=== PATIENT | male | born 1965 | race Hispanic/Latino ===

== ENCOUNTER → 2023-10-14 | Emergency (ER) | payer BC ==
--- NOTE | 2023-10-14 12:21 | RAD REPORT ---
EXAM DESCRIPTION: RAD - Ankle Right 3 View - 10/14/2023 11:11 am CLINICAL HISTORY: ankle injury COMPARISON: No comparisons TECHNIQUE: Right ankle, 3 views. FINDINGS: No fracture, dislocation or periosteal reaction. No joint effusion seen. No joint space na rrowing. No soft tissue abnormality. Vascular calcifications. IMPRESSION: No acute osseous abnormality.
--- NOTE | 2023-10-14 12:23 | EDPHYS ---
Physician Documentation [facility] Name: Edgar Subramanian Age: 58 yrs Sex: Male : 1965 Arrival Date: 10/14/2023 Time: 10:14 Bed 18 Private MD: ED Physician Shahzad Walker HPI: 10/14 10:31 This 58 yrs old Male presents to ER via Unassigned with complaints of Foot ec2 Injury, Fall Injury. 10:31 Patient arrives today for evaluation of right ankle pain. States that 3 days ago he had ec2 fallen. States that he may have twisted his ankle. Patient reports he fell onto his behind, denies any LOC, denies head strike or neck pain. Has been ambulatory with discomfort.. Historical: - Allergies: 10:33 No Known Allergies; hb - Immunization history:: Client reports having NOT received the Covid vaccine. Flu vaccine is not up to date. - Social history:: Smoking status: Patient denies any tobacco usage or history of. ROS: 10:31 Constitutional: as per hpi ec2 Exam: 10:31 Constitutional: GEN: NAD Head: atraumatic Eyes: EOMI Ears: External ears are ec2 normal. CV: regular rate LUNGS: no respiratory distress ABD: non-distended SKIN: no evidence of rashes MSK: Trace swelling to the right ankle, TTP generalized, intact distal neurovascular status. NEURO: moves all extremities equally Vital Signs: 10:32 BP 166 / 89; Pulse 98; Resp 16; Temp 98.9(O); Pulse Ox 98% on R/A; Weight 81.65 kg; hb Height 5 ft. 5 in. ; Pain 6/10; 12:30 BP 135 / 81; Pulse 86; Resp 18; Pulse Ox 96% on R/A; Pain 5/10; tl4 10:32 Body Mass Index 29.95 (81.65 kg, 165.1 cm) hb 10:32 Pain Scale: Adult hb 12:30 Pain Scale: Adult tl4 MDM: 10:25 Patient medically screened. ec2 10:31 Data reviewed: vital signs. ED course: Patient arrives today for evaluation of right ec2 ankle pain in the setting of a recent fall. Examination remarkable for MSK findings as noted above. Will obtain radiograph of the right ankle. Considering ankle sprain, ankle fracture. . 12:22 ED course: Ankle x-ray independently reviewed and interpreted by me, shows no bony ec2 fracture. Will discharge home in Grayson wrap and have him follow-up with primary care doctor. Return precautions given.. 10/14 10:31 Order name: Ankle Right 3 View XRAY ec2 10/14 12:23 Order name: Grayson Wrap; Complete Time: 12:40 ec2 Administered Medications: No medications were administered Disposition Summary: 10/14/23 12:23 Discharge Ordered Notes: Location: Home ec2 Condition: Stable ec2 Diagnosis - Sprain of ankle ec2 Followup: ec2 - With: Private Physician - When: - Reason: Recheck today's complaints Discharge Instructions: - Discharge Summary Sheet ec2 - Ankle Sprain, [id number] ec2 Forms: - Medication Reconciliation Form ec2 - Thank You Letter ec2 - Antibiotic Education ec2 - Prescription Opioid Use ec2 - Patient Portal Instructions ec2 - Leadership Thank You Letter ec2 Signatures: Dispatcher [employer] Kylah Andujar RN RN Shahzad Walker MD MD ec2 Corrections: (The following items were deleted from the chart) 10:33 10:33 Patient medically screened. ec2 ec2
--- NOTE | 2023-10-14 12:23 | ER ---
Nurse's Notes [facility] Name: Edgar Subramanian Age: 58 yrs Sex: Male : 1965 Arrival Date: 10/14/2023 Time: 10:14 Bed 18 Private MD: Diagnosis: Sprain of ankle Presentation: 10/14 10:32 Chief complaint: Slipped on ice 3 days ago and landed on back, c/o right ankle pain hb that radiates to right leg 03/04. Denies other injuries, negative LOC. Coronavirus screen: At this time, the client does not indicate any symptoms associated with coronavirus-19. Ebola Screen: No symptoms or risks identified at this time. Initial Sepsis Screen: Does the patient meet any 2 criteria? No. Patient's initial sepsis screen is negative. Does the patient have a suspected source of infection? No. Patient's initial sepsis screen is negative. Risk Assessment: Do you want to hurt yourself or someone else? Patient reports no desire to harm self or others. Onset of symptoms was October 11, 2023. 10:32 Method Of Arrival: Ambulatory hb 10:32 Acuity: ZAN 4 hb Triage Assessment: 12:32 General: Appears in no apparent distress. Behavior is calm, cooperative. Injury tl4 Description: Bruise. Historical: - Allergies: 10:33 No Known Allergies; hb - Immunization history:: Client reports having NOT received the Covid vaccine. Flu vaccine is not up to date. - Social history:: Smoking status: Patient denies any tobacco usage or history of. Screenin:[address] [facility] ED Fall Risk Assessment (Adult) History of falling in the last 3 months, tl4 including since admission Yes- single mechanical fall (1 pt) Confusion or Disorientation No (0 pts) Intoxicated or Sedated No (0 pts) Impaired Gait No (0 pts) Mobility Assist Device Used No (0 pt) Altered Elimination No (0 pt) Score/Fall Risk Level 0 - 2 = Low Risk. Abuse screen: Denies threats or abuse. Denies injuries from another. Nutritional screening: No deficits noted. Tuberculosis screening: No symptoms or risk factors identified. Assessment: 10:30 General: Appears in no apparent distress. comfortable, Behavior is calm, cooperative, nj1 appropriate for age. Pain: Complains of pain in right foot Pain currently is 6 out of 10 on a pain scale. 10:30 Neuro: Level of Consciousness is awake, alert, obeys commands, Oriented to person, nj1 place, time, situation. 10:30 Cardiovascular: Patient's skin is warm and dry. Respiratory: Airway is patent nj1 Respiratory effort is even, unlabored. Musculoskeletal: Reports pain in right foot. 12:30 Reassessment: No changes from previously documented assessment. Patient and/or family tl4 updated on plan of care and expected duration. Pain level reassessed. Patient is alert, oriented x 3, equal unlabored respirations, skin warm/dry/pink. 12:40 Reassessment: Grayson bandage applied to right ankle/foot. Directions for use given. Pt tl4 acknowledged and demonstrated understanding. Vital Signs: 10:32 BP 166 / 89; Pulse 98; Resp 16; Temp 98.9(O); Pulse Ox 98% on R/A; Weight 81.65 kg; hb Height 5 ft. 5 in. ; Pain 6/10; 12:30 BP 135 / 81; Pulse 86; Resp 18; Pulse Ox 96% on R/A; Pain 5/10; tl4 10:32 Body Mass Index 29.95 (81.65 kg, 165.1 cm) hb 10:32 Pain Scale: Adult hb 12:30 Pain Scale: Adult tl4 ED Course: 10:18 Patient arrived in ED. mg5 10:19 Shahzad Walker MD is Attending Physician. ec2 10:32 Nallely Rodriguez, GUERDA is Primary Nurse. nj1 10:33 Triage completed. hb 10:33 Arm band placed on. hb 11:13 Ankle Right 3 View XRAY In Process Unspecified. EDMS 12:01 Report given to Ishan Clarke RN. nj1 12:32 Patient has correct armband on for positive identification. Bed in low position. Call tl4 light in reach. Side rails up X 1. Provided Education on: ED process. 12:32 No provider procedures requiring assistance completed. Patient did not have IV access tl4 during this emergency room visit. Administered Medications: No medications were administered Medication: 12:31 VIS not applicable for this client. tl4 Outcome: 12:23 Discharge ordered by MD. ec2 12:43 Discharged to home ambulatory, tl4 12:43 Condition: stable 12:43 Discharge instructions given to patient, Instructed on discharge instructions, follow up and referral plans. medication usage, Demonstrated understanding of instructions, follow-up care, medications, 12:43 Patient left the ED. tl4 Signatures: Dispatcher [employer] Kylah Andujar RN RN Nallely Rodriguez RN RN nj1 [facility] Shahzad Walker MD MD ec2 Ishan Sanchez tl4 Corrections: (The following items were deleted from the chart) 10: 10:42 General: Appears in no apparent distress. comfortable, Behavior is calm, nj1 cooperative, appropriate for age, nj1 10:59 10:42 Pain: Complains of pain in right foot Pain currently is 6 out of 10 on a pain nj1 scale. nj1
[2023-10-14 15:21] VITALS: BP 135/81; TEMP 98.9; O2SAT 96
== END ==
LOC: ER 10:14
DX: S93.401A Sprain of unspecified ligament of right ankle, initial encounter (principal); W18.30XA Fall on same level, unspecified, initial encounter; M25.571 Pain in right ankle and joints of right foot
CPT/HCPCS: 99282